=== PATIENT | female | born 1990 ===

== ENCOUNTER → 2017-12-24 22:19 | Outpatient (REF) | payer OTHER, SELFPAY ==
[2017-12-24 23:19] LABS: Add Manual Diff / Slide Review NO; Basophils Percent Auto 0.7 % (0-2); Eosinophils Percent Auto 1.4 % (2-4); Hematocrit 39.7 % (36-46); Hemoglobin 13.2 g/dL (12.0-16.0); Lymphocytes Percent Auto 35.1 % (25-40); Mean Corpuscular HGB Conc 33.2 % (30-36); Mean Corpuscular Hemoglobin 29.9 PG (26-34); Mean Corpuscular Volume 89.9 fL (80-100); Monocytes Percent Auto 7.5 % (3-14); Neutrophils Absolute Auto 4800 /uL (3000-5900); Neutrophils Percent Auto 55.3 % (50-75); Platelet Count 295 X10^3/uL (150-400); Red Blood Cell Count 4.41 X10^6/uL (4.0-5.2); Red Cell Distribution Width 12.7 % (11.6-14.8); White Blood Cell Count 8.7 X10^3/uL (4.5-11.0)
[2017-12-25 00:59] LABS: HIV 1 and 2 Antibody NEGATIVE (NEGATIVE); Hep C Virus Ab w/Reflex Quant NEGATIVE s/c (NEGATIVE)
[2017-12-25 10:43] LABS: Hepatitis B Surface Antigen NEGATIVE s/c (NEGATIVE)
[2017-12-26 14:22] LABS: RPR Screen Nonreactive (Nonreactive)
[2017-12-28 12:54] LABS: HSV 2 IGG AB < 0.90 index (< 0.90); HSV1IGG < 0.90 index (< 0.90)
== END ==
LOC: LAB 22:19
PROVIDERS: Visit Provider Family Medicine
DX: R10.2 Pelvic and perineal pain (principal)
CPT/HCPCS: 85025; 86592; 86695; 86696; 86703; 86803; 87340

== ENCOUNTER → 2018-05-03 23:48 | Outpatient (REF) | payer OTHER, SELFPAY ==
[2018-05-04 03:05] LABS: Hepatitis B Surface Antigen NEGATIVE s/c (NEGATIVE)
[2018-05-04 03:07] LABS: Hep C Virus Ab w/Reflex Quant NEGATIVE s/c (NEGATIVE)
[2018-05-06 06:58] LABS: RPR Screen Nonreactive (Nonreactive)
[2018-05-06 18:10] LABS: HIV Ag/Ab, 4th Gen Nonreactive (Nonreactive)
[2018-05-07 14:21] LABS: HSV 2 IGG AB < 0.90 index (< 0.90); HSV1IGG < 0.90 index (< 0.90)
[2018-05-07 16:29] LABS: Hepatitis B Core Antibody Nonreactive (Nonreactive)
[2018-05-14 15:48] LABS: Hepatitis B Surf AB Imm QUANT 325 mIU/mL (> 9)
== END ==
LOC: LAB 23:48
PROVIDERS: Visit Provider Physician Assistant
DX: Z11.3 Encounter for screening for infections with a predominantly sexual mode of transmission (principal)
CPT/HCPCS: 36415; 86317; 86592; 86695; 86696; 86703; 86704; 86803; 87340; 87491; 87591; 87661; 87798; 87801